=== PATIENT | male | born 1980 | race Caucasian/White ===

== ENCOUNTER 2018-09-15 23:23 | Emergency (ER) | payer OTHER ==
--- NOTE | 2018-09-15 23:26 | PDOC ---
History of Present Illness - General History Source: Patient Exam Limitations: No Limitations - History of Present Illness Initial Comments: 09/15/18 23:49 The patient is a 38-year-old male with a past medical history significant for BPH presents to the emergency department with an allergic reaction. The patient states hes been on alfuzosin for a while and was recently changed to doxazosin mesylate. The patient reports about 2 days ago he noticed a large red bump to the center of the back that progressed into multiple small hives in the past 2 days. The patient reports mild itchiness to the area and reports he feels sore across the back. Denies shortness of breath, chest tightness, watery eyes, swelling or sneezing. Allergies: NKA PCP: Micahel Collins MD <Estelita Murry - Last Filed: 09/15/18 23:49> <Daniel Felton - Last Filed: 09/16/18 06:40> - General Chief Complaint: Hives Stated Complaint: HIVES Past History <Estelita Murry - Last Filed: 09/15/18 23:49> <Daniel Felton - Last Filed: 09/16/18 06:40> - Past Medical History Allergies/Adverse Reactions: Allergies Allergy/AdvReac Type Severity Reaction Status Date / Time No Known Allergies Allergy Unverified 09/15/18 23:24 Home Medications: Ambulatory Orders Alfuzosin HCl [Alfuzosin HCl ER] 10 mg PO DAILY 09/15/18 Doxazosin Mesylate 4 mg PO DAILY 09/15/18 Epinephrine [Epipen] 0.3 mg IM ONCE PRN #2 auto.injct 09/15/18 Review of Systems - Review of Systems Able to Perform ROS?: Yes Comments:: 09/15/18 23:49 GENERAL/CONSTITUTIONAL: No fever or chills. No weakness. HEAD, EYES, EARS, NOSE AND THROAT: No change in vision. No ear pain or discharge. No sore throat. CARDIOVASCULAR: No chest pain or shortness of breath. RESPIRATORY: No cough, wheezing, or hemoptysis. GASTROINTESTINAL: No nausea, vomiting, diarrhea or constipation. GENITOURINARY: No dysuria, frequency, or change in urination. MUSCULOSKELETAL: No joint or muscle swelling or pain. No neck or back pain. SKIN: No rash NEUROLOGIC: No headache, vertigo, loss of consciousness, or change in strength/ sensation. ENDOCRINE: No increased thirst. No abnormal weight change. HEMATOLOGIC/LYMPHATIC: No anemia, easy bleeding, or history of blood clots. ALLERGIC/IMMUNOLOGIC: (+) Hives noted to the mid-back. <Estelita Murry - Last Filed: 09/15/18 23:49> *Physical Exam - Vital Signs Last Vital Signs Temp Pulse Resp BP Pulse Ox 97.8 F 79 16 118/81 100 09/15/18 23:31 09/15/18 23:31 09/15/18 23:31 09/15/18 23:31 09/15/18 23:31 - Physical Exam Comments: 09/15/18 23:50 GENERAL: Awake, alert, and fully oriented, in no acute distress EYES: PERRLA, EOMI, sclera anicteric, conjunctiva clear ENT: Auricles normal inspection, hearing grossly normal, nares patent, oropharynx clear without exudates. Moist mucosa LUNGS: Breath sounds equal, clear to auscultation bilaterally. No wheezes, and no crackles NEUROLOGICAL: Normal speech, normal gait SKIN: (+) Back: 3x3 cm erythema to the center, Right upper back 3 red papules. Warm, Dry, normal turgor, No lesions noted. <Estelita Murry - Last Filed: 09/15/18 23:49> Medical Decision Making - Medical Decision Making 09/16/18 06:39 doubt allergy ? bug bite non specific, localized dermatitis topical steroid epipen/ allergy fu to r/o definitively <Daniel Felton - Last Filed: 09/16/18 06:40> *DC/Admit/Observation/Transfer <Estelita Murry - Last Filed: 09/15/18 23:49> <Daniel Felton - Last Filed: 09/16/18 06:40> Diagnosis at time of Disposition: Dermatitis - Discharge Dispostion Disposition: HOME Condition at time of disposition: Stable - Prescriptions Prescriptions: Epinephrine [Epipen] 0.3 mg IM ONCE PRN #2 auto.injct PRN Reason: allergic reaction - Referrals Referrals: Michael Wooten MD [Primary Care Provider] - - Patient Instructions Printed Discharge Instructions: DI for Rash - Post Discharge Activity
[2018-09-15 23:33] VITALS: BP 118/81; PULSE 79; TEMP 97.8; BMI 20.3
== END 2018-09-15 23:48 | disposition home or self-care (01) ==
LOC: FER 23:23
DX: L30.9 Dermatitis, unspecified (principal); N40.0 Benign prostatic hyperplasia without lower urinary tract symptoms
CPT/HCPCS: 99281-25